=== PATIENT | male | born 1960 | race African-American/Black ===

== ENCOUNTER 2017-11-17 18:51 | Emergency (ER) | payer OTHER ==
--- NOTE | 2017-11-17 19:01 | ED Physician Documentation ---
General Adult - HISTORIAN Historian: patient - HPI Stated Complaint: right forearm pain Chief Complaint: Upper Extremity Injury Onset: days ago (3) Timing: still present Severity: moderate Further Comments: yes (He states his truck collier dropped on his right forearm on . He states the arm keep swelling and causing him itching. He denies an fever. No open areas prior to the collier dropping on his arm. He states his pain is 8/10 and he did take Naproxen earlier today. He has pain all the time and not increased with certain movement.) Last known Well Code/Unknown Code: Unknown - ROS CONST: no problems - PAST HX Past History: none Other History: none Immunizations: UTD Allergies/Adverse Reactions: Allergies Allergy/AdvReac Type Severity Reaction Status Date / Time No Known Allergies Allergy Verified 02/01/14 12:50 Home Medications: Ambulatory Orders Medication Instructions Recorded NK [NK] 02/01/14 - SOCIAL HX Smoking History: non-smoker Alcohol Use: none Drug Use: none - FAMILY HX Family History: No - VITAL SIGNS Vital Signs: Vital Signs Temp Pulse Resp BP Pulse Ox 168/73 02/01/14 14:10 - REVIEWED ASSESSMENTS Nursing Assessment Reviewed: Yes Vitals Reviewed: Yes Progress - Progress Progress: 1954: He states pain is "a little better" . He is aware there is no fracture DG ED Results Lab/Radiology - Radiology Radiology Impressions: Two views the right forearm CLINICAL HISTORY: Injury. Pain. FINDINGS: Examination right forearm in AP and lateral views fails to demonstrate evidence of fracture, dislocation or other bone or joint pathology. Electronically signed on November 17, 2017 7:44:12 PM CDT by: Brennon Mohamud General Adult Physical Exam - PHYSICAL EXAM GENERAL APPEARANCE: no distress EENT: eye inspection normal NECK: normal inspection RESPIRATORY: no resp distress, chest non-tender, breath sounds normal CVS: reg rate & rhythm, heart sounds normal, equal pulses, no murmur ABDOMEN: soft, normal bowel sounds, no distension, non-tender BACK: normal inspection SKIN: warm/dry, other (right forearm with swelling and redness. FROM. PULSES + Sensation + Cap refill + ) EXTREMITIES: other (right forarm with pain with palpation to the swollen area. FROM ) NEURO: oriented X3, CN's nml as tested, motor nml, sensation nml, mood/affect nml, cognition normal Discharge Clincal Impression: Cellulitis Qualifiers: Site of cellulitis: extremity Site of cellulitis of extremity: upper extremity Laterality: right Qualified Code(s): L03.113 - Cellulitis of right upper limb Referrals: Jacobo Florian MD [Primary Care Provider] - 2 Days Additional Instructions: 1. Ice pack as needed for swelling and pain 2. Keep arm elevated clean and dry 3. Tylenol or Ibuprofen as needed for pain 4. Bactrim DS Take 1 by mouth BID X 10 days 5. See PCP in 2-4 days 6. Follow up in ER for any concerns. Increased pain, fever, drainage or other concerns Condition: Stable Disposition: 01 HOME, SELF-CARE Decision to Admit: NO Date of Decison to Admit: 11/17/17 Decision Time: 20:14
[2017-11-17] MEDS ORDERED: KETOROLAC TROMETHAMINE 60 MG/2 ML VIAL IM ONE (19:06)
--- NOTE | 2017-11-17 19:45 | Diagnostic Imaging Report ---
JM CASTAÑEDA [facility] [address] [facility] [address] [address] [place], [place]. [address] Report Submission Date: November 17, 2017 7:44:12 PM CDT Patient Study Name: LEONEL BUSH Date: November 17, 2017 7:29:19 PM CDT Modality Type: DX Gender: M Description: UPPER EXTREMITY : 60 Institution: [facility] Physician: JM CASTAÑEDA Two views the right forearm CLINICAL HISTORY: Injury. Pain. FINDINGS: Examination right forearm in AP and lateral views fails to demonstrate evidence of fracture, dislocation or other bone or joint pathology. Electronically signed on November 17, 2017 7:44:12 PM CDT by: Brennon GALINDO
[2017-11-17] MEDS ORDERED: SULFAMETHOXAZOLE/TRIMETHOPRIM 1 EACH TABLET PO ONE (19:59)
[2017-11-17 20:08] LABS: BASOPHILS % 0.1 (0.0-1.5); EOSINOPHILS % 4.3 % (0.0-6.8); MEAN CORPUSCULAR HEMOGLOBIN 29.7 pg (28.0-34.0); MEAN CORPUSCULAR VOLUME 92.7 fl (80.0-100.0); MONOCYTES % 4.1 % (0.0-11.0); NEUTROPHILS # 5.8 # k/uL (1.4-7.7)
[2017-11-17 20:16] VITALS: BP 149/90
[2017-11-17 20:17] LABS: eGFR (Non-African) > 60
== END 2017-11-17 20:20 | disposition home or self-care (01) ==
LOC: ED 18:51
DX: L03.113 Cellulitis of right upper limb (principal)
CPT/HCPCS: 73090; 80053; 85025; 96372; 99284; A9270; J1885

== ENCOUNTER 2017-11-18 16:46 | Emergency (ER) | payer OTHER ==
[2017-11-18] MEDS ORDERED: SULFAMETHOXAZOLE/TRIMETHOPRIM 1 EACH TABLET PO ONE ×2 (17:00→17:02)
[2017-11-18 17:01] VITALS: BP 137/89
--- NOTE | 2017-11-18 17:09 | ED Physician Documentation ---
Upper Extremity Injury - HISTORIAN Historian: patient - HPI Chief Complaint: Upper Extremity Injury Additional Information: pt here c/o persistent swelling rt fore arm now ext to wrist and less to dorsum hand. injury occ when truck collier fell on distal rt forearm past-seen here last noct rec bactrim ds and had xray rept as neg. he rec bactrim ds 2000 hrs given rx for bactrim ds bid. he has not picked up his rx and has not had arm elevated. he is given 2nd bactrim and told get rx filled take 3rd bactrim tonite and keep arm elevated and cont w/intermittent cold pack. Onset: other ( 3 days ago) Where: home Severity: mild, moderate Duration: persistent since Context: blow, crush. denies: incision Associated Symptoms: denies: tingling, numbness distally, feeling loss, loss of power to arms Modifying Factors: pain on movement (minimal) Further Comments: yes (nail marcio =1 sec radial and ulnar pulses normal) - ROS CONST: no problems CVS/RESP: none NEURO: none (has normal feeling and use of hand) MS/SKIN/LYMPH: other (abrasion at impact site) - PAST HX Past History: Rt handed Allergies/Adverse Reactions: Allergies Allergy/AdvReac Type Severity Reaction Status Date / Time No Known Allergies Allergy Verified 02/01/14 12:50 Home Medications: Ambulatory Orders Medication Instructions Recorded NK [NK] 02/01/14 - SOCIAL HX Smoking History: greater than 1 pack/day Alcohol Use: none (for several years) Drug Use: none - FAMILY HX Family History: no significant history - VITAL SIGNS Vital Signs: Vital Signs Temp Pulse Resp BP Pulse Ox 149/90 11/17/17 20:13 - REVIEWED ASSESSMENTS Nursing Assessment Reviewed: Yes Vitals Reviewed: Yes ED Results Lab/Radiology - Orders Orders: ED Orders Category Date Time Status Sulfamethoxazole/Trimethoprim [Bactrim Ds] Med 11/18/17 17:00 Once 1 each PO NOW ONE Upper Extremity Injury Physic - Physical Exam General Appearance: mild distress Hand: normal inspection (minimal swelling dorsum rt hand/wrist and forearm) Wrist: non-tender Elbow/Forearm: normal inspection Shoulder: normal inspection Neuro/Vascular/Tendon: no vascular compromise, motor nml, sensation nml. No: abnml color, abnml warmth, abnml cap refill, pulse deficit, sensory deficit, motor deficit Skin: warm,dry. No: diaphoretic Head/ENT: nml inspection. No: swelling, ecchymosis Neck/Back: nml inspection, non-tender Resp/CVS: chest non-tender, heart sounds nml (tachy to 150), decreased breath sounds, wheezes, rales, rhonchi (prolonged exp wheeze/rhonci only devon slithtly improved over admission), other (resp rate 30 now 40+ on admission). No: breath sounds nml, lungs clear, reg. rate & rhythm (regular w/o murmur but tachy ), paradoxical movements Abdomen: non-tender, pelvis stable. No: tenderness, guarding Discharge Clincal Impression: persistent resp distress-asthma Referrals: Jacobo Florian MD [Primary Care Provider] - 2 Days Comments: called DR JIM will admit Condition: Fair Disposition: 09 ADMITTED INPATIENT Decision to Admit: [id number] Decision Time: 17:23
== END 2017-11-18 17:07 | disposition other institution (70) ==
LOC: ED 16:46
DX: S57.81XA Crushing injury of right forearm, initial encounter (principal); X58.XXXA Exposure to other specified factors, initial encounter; Y92.9 Unspecified place or not applicable; Y93.9 Activity, unspecified; Y99.9 Unspecified external cause status
CPT/HCPCS: 99283; A9270

== ENCOUNTER 2018-06-11 14:01 | Outpatient (CLI) | payer OTHER ==
[2018-06-11 16:16] LABS: EOSINOPHILS % 6.7 % (0.0-6.8); MEAN CORPUSCULAR HEMOGLOBIN 30.3 pg (28.0-34.0); MONOCYTES % 6.8 % (0.0-11.0)
[2018-06-11 16:17] LABS: BASOPHILS % 0.4 (0.0-1.5); NEUTROPHILS # 3.5 # k/uL (1.4-7.7)
--- NOTE | 2018-06-11 16:56 | Diagnostic Imaging Report ---
SAIGE WHTIMAN [facility] [address] [facility] [address] [address] Report Submission Date: Jun 11, 2018 3:19:10 PM VETERINARY ANATOMIST Patient Study Name: LEONEL BUSH Date: Jun 11, 2018 2:51:15 PM VETERINARY ANATOMIST Modality Type: DX Gender: M Description: SHOULDER : 60 Institution: [facility] Physician: SAIGE WHITMAN Examination: Plain film right shoulder History: PAIN IN RIGHT SHOULDER POST ROTATOR CUFF REPAIR. (Hx) Comparison exams: None provided Findings: 3 views of the right shoulder demonstrate normal cortical margins. No evidence for fracture or dislocation. No soft tissue abnormality Impression: No acute osseous process. Electronically signed on Jun 11, 2018 3:19:10 PM VETERINARY ANATOMIST by: Giovani GALINDO
[2018-06-11 17:14] LABS: eGFR (Non-African) > 60
--- NOTE | 2018-06-11 21:30 | Diagnostic Imaging Report ---
SAIGE WHITMAN [facility] [address] [facility] [address] [address] Report Submission Date: Jun 11, 2018 8:55:10 PM MEDICINE TECHNOLOGIST Patient Study Name: LEONEL BUSH Date: Jun 11, 2018 1:12:00 PM MEDICINE TECHNOLOGIST Modality Type: US Gender: M Description: [facility] : 60 Institution: [facility] Physician: SAIGE WHITMAN Duplex imaging right lower extremity Clinical history: Leg swelling. History of deep venous thrombosis. Technique: Real-time sonography of the right lower extremity is performed in transverse and longitudinal views. Doppler interrogation and color-flow imaging are additionally used. Findings: There is incompletely occlusive thrombus identified extending from the right superficial femoral vein to the popliteal vein. These veins are incompletely compressible but demonstrate some flow on color flow imaging and Doppler interrogation. 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 There is no evidence of acute or occlusive thrombosis. Calf veins are not well seen but appear patent. Impression: 1. Incompletely occlusive thrombus identified extending from the superficial femoral vein proximally to the popliteal vein. 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 2. No evidence of occlusive thrombosis. Electronically signed on Jun 11, 2018 8:55:10 PM MEDICINE TECHNOLOGIST by: Brennon GALINDO
== END 2018-06-11 14:03 ==
LOC: RAD 14:01
PROVIDERS: ATTEND Family Medicine
DX: I82.411 Acute embolism and thrombosis of right femoral vein (principal); I82.431 Acute embolism and thrombosis of right popliteal vein; M25.511 Pain in right shoulder; M79.89 Other specified soft tissue disorders; Z86.718 Personal history of other venous thrombosis and embolism
CPT/HCPCS: 36415; 73030; 80053; 81241; 83090; 85025; 85300; 85302; 85305; 93971